=== PATIENT | male | born 1955 | race Caucasian/White ===

== ENCOUNTER 2020-05-10 19:00 | Emergency (ER) | payer BC ==
--- NOTE | 2020-05-10 19:20 | EDM.PDOC ---
ED HPI GENERAL MEDICAL PROBLEM - General Chief Complaint: Eye Problems Stated Complaint: EYES HURT AND PAIN IN FRONT OF HEAD Time Seen by Provider: 05/10/20 19:14 - History of Present Illness INITIAL COMMENTS - FREE TEXT/NARRATIVE: 64-year-old male presents the emergency room with irritation to both eyes. Yesterday the patient was spraying some bugs and when he was done with this he took his gloves off and rubbed his eyes. Last evening he noticed his eyes were irritated. He tried to wash them good this morning he woke up and feel better but was still persistent and progressively worsened a little bit through the course of the day today. Patient denies any other exposures the only trauma would have been him rubbing his eyes. Patient has not noticed any decrease in his vision. Patient also wonders if his forehead is harder than normal. Patient denies any other symptoms. - Related Data Allergies Allergy/AdvReac Type Severity Reaction Status Date / Time No Known Allergies Allergy Verified 12/07/18 09:07 Home Meds: Home Meds cephALEXin [Cephalexin] 500 mg PO TID 12/07/18 [History] Past Medical History HEENT History: Reports: Impaired Vision - Past Surgical History GI Surgical History: Reports: Hernia, Inguinal Social & Family History - Family History Family Medical History: Noncontributory ED ROS GENERAL - Review of Systems Review Of Systems: See Below Constitutional: Reports: No Symptoms HEENT: Reports: No Symptoms, Eye Pain (More of a discomfort or irritation). Denies: Eye Discharge Respiratory: Reports: No Symptoms Cardiovascular: Reports: No Symptoms GI/Abdominal: Reports: No Symptoms Musculoskeletal: Reports: No Symptoms ED EXAM GENERAL W FULL EYE - Physical Exam Exam: See Below Exam Limited By: No Limitations General Appearance: Alert, No Apparent Distress Eye Exam: Bilateral Eye: EOMI, Normal Inspection, PERRL Visual Acuity (R) 20/: 25 (20/25 with both as well) Visual Acuity (L) 20/: 25 With Correction: Yes Eyelids: Bilateral: Normal Appearance Conjunctiva & Sclera: Bilateral: Normal Appearance Cornea Exam: Bilateral: Normal Appearance, Examined with Flourescein Extraocular Movements: Bilateral: Intact Pupillary Reaction: Bilateral: Brisk Anterior Chamber: Bilateral: Normal Appearance Posterior Chamber: Bilateral: Normal Funduscopic Head: Atraumatic, Normocephalic Neck: Normal Inspection, Supple, Non-Tender, Full Range of Motion Respiratory/Chest: No Respiratory Distress, Lungs Clear, Normal Breath Sounds Cardiovascular: Normal Peripheral Pulses, Regular Rate, Rhythm, No Edema Course - Vital Signs Last Recorded V/S: Last Vital Signs Temp 36.7 C 05/10/20 19:08 Pulse 60 05/10/20 19:08 Resp 16 05/10/20 19:08 BP 140/74 05/10/20 19:08 Pulse Ox 96 05/10/20 19:08 - Orders/Labs/Meds Meds: Medications Discontinued Medications Generic Name Dose Route Start Last Admin Trade Name Emilia PRN Reason Stop Dose Admin Fluorescein Sodium 1 mg 05/10/20 19:23 05/10/20 19:30 Ful-Sarah EYEBOTH 05/10/20 19:24 1 mg ONETIME ONE Administration Fluorescein Sodium 1 mg 05/10/20 19:37 Ful-Sarah EYEBOTH 05/10/20 19:38 ONETIME ONE Proparacaine HCl 0.1 ml 05/10/20 19:21 05/10/20 19:30 Proparacaine 0.5% Ophth Soln EYEBOTH 05/10/20 19:22 1 applic ONETIME ONE Administration - Re-Assessments/Exams Free Text/Narrative Re-Assessment/Exam: 05/10/20 19:48 I cannot find much on his eye exam he had relief of symptoms with proparacaine. Unfortunately I cannot get any of the tonometers to work I did discuss this with the patient he does not want to go to [place] to have this checked. He does agree to follow-up with his eye doctor early this week. 05/10/20 19:50 Patient is still experiencing relief from his discomfort after the proparacaine. Departure - Departure Time of Disposition: 19:50 Disposition: Home, Self-Care 01 Clinical Impression: Irritation of both eyes - Discharge Information Referrals: PCP,None [Primary Care Provider] - Forms: ED Department Discharge Additional Instructions: Return to the emergency room with any questions problems or worsening symptoms. Follow-up with your eye doctor on Monday or Monday for recheck. Sepsis Event Note (ED) - Evaluation Sepsis Screening Result: No Definite Risk - Focused Exam Vital Signs: Vital Signs Temp Pulse Resp BP Pulse Ox 05/10/20 19:08 36.7 C 60 16 140/74 96
[2020-05-10] MEDS ORDERED: Proparacaine 0.5% Ophth Soln 15 ML Bottle EYEBOTH ONE (19:21)
[2020-05-10] MEDS ORDERED: Fluorescein 1 MG Ophth Strip EYEBOTH ONE ×2 (19:23→19:37)
== END 2020-05-10 20:01 | disposition home or self-care (01) ==
LOC: JD.ED 19:00
DX: H57.89 Other specified disorders of eye and adnexa (principal)
CPT/HCPCS: 99282; 99283

== ENCOUNTER 2024-06-02 15:39 | Inpatient (IN) | payer BC ==
[2024-06-02] MEDS ORDERED: Acetaminophen 325 MG Tab PO ONE (16:04)
[2024-06-02 16:10] LABS: BASOPHILS PERCENT AUTO 0.2 % (0.0-1.0); EOSINOPHILS PERCENT AUTO 0.1 % (0.0-6.0); HEMATOCRIT 42.1 % (42.0-52.0); HEMOGLOBIN 14.4 gm/dl (14.0-18.0); IMMATURE GRAN PERCENT AUTO 0.6 % (0.0-0.4); LYMPHOCYTES ABSOLUTE AUTO 1.5 K/mm3 (1.0-4.8); LYMPHOCYTES PERCENT AUTO 8.7 % (24.0-44.0); MEAN CORPUSCULAR HEMOGLOBIN 30.6 pg (28.0-32.0); MEAN CORPUSCULAR HGB CONC 34.2 g/dl (32.0-36.0); MEAN CORPUSCULAR VOLUME 89.4 fl (83.0-99.0); MEAN PLATELET VOLUME 9.4 fl (9.4-12.4); MONOCYTES ABSOLUTE AUTO 1.1 K/mm3 (0.0-0.8); MONOCYTES PERCENT AUTO 6.3 % (0.0-8.0); NEUTROPHILS ABSOLUTE AUTO 14.8 K/mm3 (1.8-7.7); NEUTROPHILS PERCENT AUTO 84.1 % (41.0-71.0); PLATELET COUNT,PLT 241 K/mm3 (150-400); RED BLOOD CELL COUNT 4.71 M/mm3 (4.52-5.90); WHITE BLOOD CELL COUNT,WBC 17.53 K/mm3 (3.9-11.3)
[2024-06-02] MEDS: Sodium Chloride 0.9% 10 ML Syringe FLUSH PRN (16:37)
[2024-06-02] MEDS: cefTRIAXone 2 GM in Sodium Chloride 0.9% 100 ML IV ONE (16:37)
[2024-06-02] MEDS: Sulfamethoxazole/Trimethoprim 800-160 MG Tab PO ONE (16:37)
[2024-06-02 17:13] LABS: A/G RATIO 0.9 (1-2); ALANINE AMINOTRANSFERASE,ALT 28 U/L (16-63); ALBUMIN 3.5 g/dl (3.4-5.0); ALKALINE PHOSPHATASE 72 U/L (46-116); ANION GAP 17.6 (5-15); ASPARTATE AMNIOTRANSFERASE,AST 19 U/L (15-37); BILIRUBIN TOTAL 1.5 mg/dL (0.2-1.0); BLOOD UREA NITROGEN,BUN 21 mg/dL (7-18); CALCIUM 9.5 mg/dL (8.5-10.1); CARBON DIOXIDE,CO2 23 mEq/L (21-32); CHLORIDE,CL 96 mEq/L (98-107); CREATININE 1.4 mg/dL (0.7-1.3); EST CRCL DRUG DOSING (CG) 42.14 mL/min; ESTIMATED GFR 55 mL/min (>60); GLUCOSE RANDOM 123 mg/dL (70-99); MAGNESIUM 1.9 mg/dL (1.8-2.4); POTASSIUM,K 3.6 mEq/L (3.5-5.1); PROTEIN TOTAL,TP 7.4 g/dl (6.4-8.2); SODIUM,NA 133 mEq/L (136-145)
[2024-06-02 17:15] LABS: LACTIC ACID 0.9 mmol/L (0.4-2.0)
[2024-06-02 17:20] LABS: C-REACTIVE PROTEIN > 25.00 mg/dL (<0.30)
[2024-06-02] MEDS: Ibuprofen 600 MG Tab PO ONE (17:21)
[2024-06-02] MEDS: Sodium Chloride 0.9% 1,000 ML IV ONE (17:27)
[2024-06-02] MEDS ORDERED: Sennosides/Docusate Sodium 50-8.6 MG Tab PO PRN (19:04)
[2024-06-02] MEDS ORDERED: Melatonin 3 MG Tab PO PRN (19:04)
[2024-06-02] MEDS ORDERED: Morphine 2 MG/ML SYRINGE IVPUSH PRN (19:04)
[2024-06-02] MEDS ORDERED: Ondansetron 4 MG/2 ML SDV IV PRN (19:04)
[2024-06-02 19:06] LABS: APPEARANCE,URINE CLEAR (Clear); BILIRUBIN,URINE NEGATIVE (Negative); COLOR,URINE YELLOW (Yellow); GLUCOSE,URINE NEGATIVE (Negative); KETONES,URINE TRACE (Negative); LEUKOCYTE ESTERASE,URINE NEGATIVE (Negative); NITRITE,URINE NEGATIVE (Negative); OCCULT BLOOD,URINE TRACE-LYSED (Negative); PROTEIN,URINE 1+ (Negative); UROBILINOGEN,URINE 0.2 (0.2-1.0)
[2024-06-02 19:14] LABS: BACTERIA,URINE RARE /hpf (FEW); EPITHELIAL CELLS,URINE NOT SEEN /hpf (0-5); HYALINE CASTS,URINE 0-5 /lpf (0-5); MUCUS,URINE FEW /hpf (FEW); RBC,URINE 0-5 /hpf (0-5); WBC,URINE 0-5 /hpf (0-5)
[2024-06-02 19:26] LABS: HEMOGLOBIN A1C 5.3 %
[2024-06-02] MEDS: VANCOmycin 1.25 GM/250 ML 1.25 GM in Premix Bag 1 BAG IV SCH (20:29)
[2024-06-02] MEDS: Acetaminophen 325 MG Tab PO PRN (21:01)
[2024-06-03 05:32] LABS: HEMATOCRIT 41.4 % (42.0-52.0); HEMOGLOBIN 14.1 gm/dl (14.0-18.0); MEAN CORPUSCULAR HEMOGLOBIN 30.9 pg (28.0-32.0); MEAN CORPUSCULAR HGB CONC 34.1 g/dl (32.0-36.0); MEAN CORPUSCULAR VOLUME 90.6 fl (83.0-99.0); MEAN PLATELET VOLUME 9.6 fl (9.4-12.4); PLATELET COUNT,PLT 182 K/mm3 (150-400); RED BLOOD CELL COUNT 4.57 M/mm3 (4.52-5.90); WHITE BLOOD CELL COUNT,WBC 14.01 K/mm3 (3.9-11.3)
[2024-06-03 06:15] LABS: ANION GAP 15.9 (5-15); BLOOD UREA NITROGEN,BUN 23 mg/dL (7-18); BUN/CREATININE RATIO 19.2 (14-18); CALCIUM 9.7 mg/dL (8.5-10.1); CARBON DIOXIDE,CO2 23 mEq/L (21-32); CHLORIDE,CL 101 mEq/L (98-107); CREATININE 1.2 mg/dL (0.7-1.3); EST CRCL DRUG DOSING (CG) 48.57 mL/min; ESTIMATED GFR 66 mL/min (>60); GLUCOSE RANDOM 124 mg/dL (70-99); PHOSPHORUS 2.8 mg/dL (2.6-4.7); POTASSIUM,K 3.9 mEq/L (3.5-5.1); SODIUM,NA 136 mEq/L (136-145)
[2024-06-03 06:19] LABS: C-REACTIVE PROTEIN > 25.00 mg/dL (<0.30)
[2024-06-03] MEDS: Enoxaparin 40 MG/0.4 ML Syringe SUBCUT SCH (09:10)
[2024-06-03] MEDS: cefTRIAXone 1 GM in Sodium Chloride 0.9% 100 ML IV SCH (09:10)
[2024-06-03] MEDS: Enoxaparin 60 MG/0.6 ML Syringe SUBCUT ONE (11:29)
[2024-06-03] MEDS: Cefepime 2 GM in Sodium Chloride 0.9% 50 ML IV SCH (12:01)
[2024-06-03] MEDS: Sodium Chloride 0.9% 100 ML IV SCH (13:13)
[2024-06-03] MEDS: Iopamidol 755 Mg/ML 100 ML Bottle IVPUSH ONE (13:13)
[2024-06-03] MEDS: Sodium Chloride 0.9% 1,000 ML IV SCH (14:10)
[2024-06-03] MEDS: Ibuprofen 800 MG Tab PO ONE (16:00)
[2024-06-03] MEDS: Sodium Chloride 0.9% 1,000 ML IV ONE (17:30)
[2024-06-03] MEDS: Enoxaparin 60 MG/0.6 ML Syringe SUBCUT SCH (20:58)
[2024-06-04] MEDS: Cefepime 2 GM in Sodium Chloride 0.9% 50 ML IV SCH ×2 (00:43→07:55)
[2024-06-04] MEDS: traMADol 50 MG Tab PO PRN (02:58)
[2024-06-04 06:49] LABS: BASOPHILS PERCENT AUTO 0.2 % (0.0-1.0); EOSINOPHILS PERCENT AUTO 0.2 % (0.0-6.0); HEMATOCRIT 35.9 % (42.0-52.0); IMMATURE GRAN ABSOLUTE AUTO 0.05 K/mm3 (0.00-0.05); IMMATURE GRAN PERCENT AUTO 0.5 % (0.0-0.4); LYMPHOCYTES ABSOLUTE AUTO 0.9 K/mm3 (1.0-4.8); LYMPHOCYTES PERCENT AUTO 8.4 % (24.0-44.0); MEAN CORPUSCULAR HEMOGLOBIN 31.1 pg (28.0-32.0); MEAN CORPUSCULAR HGB CONC 34.3 g/dl (32.0-36.0); MEAN CORPUSCULAR VOLUME 90.9 fl (83.0-99.0); MEAN PLATELET VOLUME 10.2 fl (9.4-12.4); MONOCYTES ABSOLUTE AUTO 0.8 K/mm3 (0.0-0.8); MONOCYTES PERCENT AUTO 7.5 % (0.0-8.0); NEUTROPHILS PERCENT AUTO 83.2 % (41.0-71.0); PLATELET COUNT,PLT 186 K/mm3 (150-400); RED BLOOD CELL COUNT 3.95 M/mm3 (4.52-5.90); WHITE BLOOD CELL COUNT,WBC 10.78 K/mm3 (3.9-11.3)
[2024-06-04 06:55] LABS: HEMOGLOBIN 12.3 gm/dl (14.0-18.0)
[2024-06-04 06:58] LABS: ANION GAP 13.9 (5-15); BLOOD UREA NITROGEN,BUN 14 mg/dL (7-18); BUN/CREATININE RATIO 15.6 (14-18); CALCIUM 8.3 mg/dL (8.5-10.1); CARBON DIOXIDE,CO2 22 mEq/L (21-32); CHLORIDE,CL 104 mEq/L (98-107); CREATININE 0.9 mg/dL (0.7-1.3); EST CRCL DRUG DOSING (CG) 66.82 mL/min; ESTIMATED GFR 93 mL/min (>60); GLUCOSE RANDOM 120 mg/dL (70-99); MAGNESIUM 1.7 mg/dL (1.8-2.4); POTASSIUM,K 3.9 mEq/L (3.5-5.1); SODIUM,NA 136 mEq/L (136-145)
[2024-06-04 07:10] LABS: C-REACTIVE PROTEIN > 25.00 mg/dL (<0.30)
[2024-06-04] MEDS: Magnesium Sulfate/Water 2 GM in Premix Bag 1 BAG IV ONE (08:48)
[2024-06-04] MEDS: VANCOmycin 1.25 GM/250 ML 1.25 GM in Premix Bag 1 BAG IV SCH (13:46)
[2024-06-04] MEDS: Apixaban 5 MG Tab PO SCH (20:26)
[2024-06-05 05:25] LABS: ANION GAP 13.7 (5-15); BUN/CREATININE RATIO 12.5 (14-18); C-REACTIVE PROTEIN 17.46 mg/dL (<0.30); CALCIUM 8.5 mg/dL (8.5-10.1); CREATININE 0.8 mg/dL (0.7-1.3); EST CRCL DRUG DOSING (CG) 75.24 mL/min; POTASSIUM,K 3.7 mEq/L (3.5-5.1)
[2024-06-05 05:32] LABS: BASOPHILS PERCENT AUTO 0.3 % (0.0-1.0); EOSINOPHILS ABSOLUTE AUTO 0.1 K/mm3 (0.0-0.4); EOSINOPHILS PERCENT AUTO 0.9 % (0.0-6.0); HEMATOCRIT 33.6 % (42.0-52.0); HEMOGLOBIN 11.4 gm/dl (14.0-18.0); IMMATURE GRAN ABSOLUTE AUTO 0.04 K/mm3 (0.00-0.05); IMMATURE GRAN PERCENT AUTO 0.4 % (0.0-0.4); LYMPHOCYTES ABSOLUTE AUTO 1.7 K/mm3 (1.0-4.8); LYMPHOCYTES PERCENT AUTO 18.3 % (24.0-44.0); MEAN CORPUSCULAR HEMOGLOBIN 30.6 pg (28.0-32.0); MEAN CORPUSCULAR HGB CONC 33.9 g/dl (32.0-36.0); MEAN CORPUSCULAR VOLUME 90.1 fl (83.0-99.0); MEAN PLATELET VOLUME 10.1 fl (9.4-12.4); MONOCYTES ABSOLUTE AUTO 0.8 K/mm3 (0.0-0.8); MONOCYTES PERCENT AUTO 9.3 % (0.0-8.0); NEUTROPHILS ABSOLUTE AUTO 6.4 K/mm3 (1.8-7.7); NEUTROPHILS PERCENT AUTO 70.8 % (41.0-71.0); PLATELET COUNT,PLT 184 K/mm3 (150-400); RED BLOOD CELL COUNT 3.73 M/mm3 (4.52-5.90); WHITE BLOOD CELL COUNT,WBC 9.08 K/mm3 (3.9-11.3)
== END 2024-06-05 15:42 | disposition home or self-care (01) | DRG 197 ==
LOC: JD.ED 15:39 → JD.MS 18:08 → OBSVTOIN 06-03 10:36
PROVIDERS: ADMIT Student in an Organized Health Care Education/Training Program; ATTEND Student in an Organized Health Care Education/Training Program
DX: I82.811 Embolism and thrombosis of superficial veins of right lower extremity (principal); L03.115 Cellulitis of right lower limb; N17.9 Acute kidney failure, unspecified; D72.829 Elevated white blood cell count, unspecified; R79.89 Other specified abnormal findings of blood chemistry; E83.42 Hypomagnesemia; K59.00 Constipation, unspecified; F17.210 Nicotine dependence, cigarettes, uncomplicated; Z79.01 Long term (current) use of anticoagulants; Z87.39 Personal history of other diseases of the musculoskeletal system and connective tissue; Z98.890 Other specified postprocedural states
CPT/HCPCS: 36415; 73701-26-RT; 73701-RT; 80048; 80053; 80202; 81001; 83036; 83605; 83735; 84100; 85025; 85027; 85652; 86140; 87040; 87154; 87641; 93971-26-RT; 93971-RT; 96361; 96365; 96367; 96372; 99284-25; A9270-GY; G0378; J0692; J0696; J1650; J3372; J3475; J3490; J7030; Q9967